=== PATIENT | female | born 1970 | race Two or more races ===

== ENCOUNTER 2016-09-28 20:03 | Inpatient (IN) | payer BC ==
[~2016-09-28] VITALS: Ht 177.8 cm; Wt 72.8 kg
[2016-09-28 20:25] LABS: BASOPHILS # (AUTO) 0.1 /CMM (0.0-0.2); DIFF TOTAL % 100 %; EOSINOPHILS # (AUTO) 0.2 /CMM (0.0-0.7); EOSINOPHILS % (AUTO) 3.1 % (0.0-6.0); HEMATOCRIT 40 % (33-45); HEMOGLOBIN 13.7 g/dL (11.5-14.8); LYMPHOCYTES # (AUTO) 2.4 /CMM (0.8-4.8); LYMPHOCYTES % (AUTO) 41.1 % (20.0-44.0); MEAN CORPUSCULAR HEMOGLOBIN 31 PG (26.0-33.0); MEAN CORPUSCULAR HGB CONC 34 g/dl (31.0-36.0); MEAN CORPUSCULAR VOLUME 90 fL (82-100); MONOCYTES # (AUTO) 0.5 /CMM (0.1-1.30); MONOCYTES % (AUTO) 8.4 % (2.0-12.0); NEUTROPHILS # (AUTO) 2.7 /CMM (1.8-8.9); NEUTROPHILS % (AUTO) 46.4 % (43.0-81.0); PLATELET COUNT (AUTO) 288 /CMM (150-450); RED BLOOD CELL COUNT(AUTO) 4.44 MIL/uL (4.0-5.2); WHITE BLOOD COUNT (AUTO) 5.9 K/uL (4.3-11.0)
[2016-09-28 20:39] LABS: INR 0.91 (0.87-1.13); PROTHROMBIN TIME 9.6 SECS (9.5-12.7)
[2016-09-28 20:41] LABS: ACETAMINOPHEN 0 ug/ml (10-30); ALANINE AMINOTRANSFERASE 21 U/L (12-78); ALBUMIN 3.8 g/dL (3.4-5.0); ANION GAP 12 (5-14); ASPARTATE AMINOTRANSFERASE 18 U/L (15-37); BILIRUBIN,DIRECT 0.1 mg/dL (0.0-0.2); BILIRUBIN,TOTAL 0.3 mg/dL (0.2-1.0); CALCIUM, SERUM 8.9 mg/dL (8.5-10.1); CARBON DIOXIDE 26 mmol/L (21-32); CHLORIDE 107 mmol/L (98-107); GFR 59 mL/min (>60); GLUCOSE 87 mg/dL (74-106); INDIRECT BILIRUBIN 0.2 mg/dL (0.0-1.1); POTASSIUM 3.8 mmol/L (3.5-5.1); SODIUM SERUM 141 mmol/L (136-145); TOTAL PROTEIN, SERUM 7.1 g/dL (6.4-8.2); UREA NITROGEN, BLOOD 17 mg/dL (7-18)
[2016-09-28 20:44] LABS: TROPONIN I < 0.017 ng/mL (0.00-0.056)
[2016-09-28 20:52] LABS: THYROID STIMULATING HORMONE 3.414 uIU/mL (0.358-3.74)
[2016-09-28] MEDS ORDERED: IV NS 0.9% 250 ML IV ONE (21:22)
[2016-09-28] MEDS ORDERED: IOHEXOL-350 100 ML VIAL IV ONE (21:22)
[2016-09-28 21:23] LABS: ADD UA MICROSCOPIC NO; KETONES,URINE Negative (NEGATIVE); LEUKOCYTE ESTERASE ,URINE Negative (NEGATIVE); PH,URINE 6.5 (5.0-8.0)
[2016-09-28] MEDS ORDERED: FOLI1TAB16 PO (21:25)
[2016-09-28] MEDS ORDERED: METF100P3 MC (21:25)
[2016-09-28] MEDS ORDERED: FLUO10CA26 PO (21:25)
[2016-09-28] MEDS ORDERED: MULT1CAP34 PO (21:25)
[2016-09-28] MEDS ORDERED: OMEG100T PO (21:25)
[2016-09-28] MEDS ORDERED: CALC-343 PO (21:25)
[2016-09-28] MEDS ORDERED: ALPR0.5T PO (21:25)
[2016-09-28] MEDS ORDERED: TRAZ150T75 PO (21:25)
[2016-09-28] MEDS ORDERED: LAMO100T2 PO (21:25)
[2016-09-28] MEDS ORDERED: [UNRECOGNIZED DRUG - OTHER] (21:25)
[2016-09-28] MEDS ORDERED: LACT1CAP71 PO (21:25)
[2016-09-28 21:28] LABS: CANNABINOID, URINE NEGATIVE (NEGATIVE); PHENCYCLIDINE SCREEN,URINE NEGATIVE (NEGATIVE)
[2016-09-28 22:50] VITALS: BP 130/80
[2016-09-28] MEDS ORDERED: HYDROCODONE/APAP 5/325MG 1 EACH TABLET PO PRN (23:30)
[2016-09-28] MEDS ORDERED: ONDANSETRON HCL/PF 4 MG/2 ML VIAL IVP PRN (23:30)
[2016-09-28] MEDS ORDERED: MAG HYDROX/AL HYDROX/SIMETH 30 ML UDC PO PRN (23:30)
[2016-09-28] MEDS ORDERED: ACETAMINOPHEN 325 MG TABLET PO PRN (23:30)
[2016-09-28] MEDS ORDERED: ZOLPIDEM TARTRATE 5 MG TABLET PO PRN (23:30)
[2016-09-28] MEDS ORDERED: Z GUARD REMEDY 2 OZ OINT TP PRN (23:30)
[2016-09-28] MEDS ORDERED: MAGNESIUM HYDROXIDE 30 ML UDC PO PRN (23:30)
[2016-09-28 23:50] VITALS: BP 130/80
[2016-09-29] MEDS: BLOOD SUGAR DIAGNOSTIC 1 EACH STRIP IN SCH ×5 (00:36→22:27)
[2016-09-29 04:00] VITALS: BP 124/79
[2016-09-29 06:34] LABS: BASOPHILS % (AUTO) 0.6 % (0.0-2.0); DIFF TOTAL % 100 %; EOSINOPHILS # (AUTO) 0.1 /CMM (0.0-0.7); EOSINOPHILS % (AUTO) 2.7 % (0.0-6.0); HEMATOCRIT 39 % (33-45); HEMOGLOBIN 13.4 g/dL (11.5-14.8); LYMPHOCYTES # (AUTO) 1.9 /CMM (0.8-4.8); LYMPHOCYTES % (AUTO) 38.9 % (20.0-44.0); MEAN CORPUSCULAR HEMOGLOBIN 31 PG (26.0-33.0); MEAN CORPUSCULAR HGB CONC 34 g/dl (31.0-36.0); MEAN CORPUSCULAR VOLUME 91 fL (82-100); MONOCYTES # (AUTO) 0.5 /CMM (0.1-1.30); MONOCYTES % (AUTO) 10.1 % (2.0-12.0); NEUTROPHILS # (AUTO) 2.3 /CMM (1.8-8.9); NEUTROPHILS % (AUTO) 47.7 % (43.0-81.0); PLATELET COUNT (AUTO) 302 /CMM (150-450); WHITE BLOOD COUNT (AUTO) 4.9 K/uL (4.3-11.0)
[2016-09-29 07:01] LABS: PROTHROMBIN TIME 10.1 SECS (9.5-12.7)
[2016-09-29 07:02] LABS: INR 0.94 (0.87-1.13)
[2016-09-29 07:13] LABS: ALBUMIN 3.5 g/dL (3.4-5.0); BILIRUBIN,TOTAL 0.5 mg/dL (0.2-1.0); CALCIUM, SERUM 8.4 mg/dL (8.5-10.1); CREATININE 0.9 mg/dL (0.6-1.3); PHOSPHORUS 3.9 mg/dL (2.5-4.9); POTASSIUM 4.2 mmol/L (3.5-5.1); TOTAL PROTEIN, SERUM 6.6 g/dL (6.4-8.2)
[2016-09-29 07:14] LABS: THYROID STIMULATING HORMONE 4.16 uIU/mL (0.358-3.74)
[2016-09-29 08:00] VITALS: BP 112/70
[2016-09-29 08:57] LABS: ERYTHROCYTE SEDIMENTATION RATE 8 MM/HR (0-20)
[2016-09-29] MEDS: ACIDOPHILUS/BULGARICUS 1 EACH TAB.CHEW PO SCH (09:26)
[2016-09-29] MEDS: MULTIVITAMINS,THERAPEUTIC 1 UDTAB TABLET PO SCH (09:26)
[2016-09-29] MEDS: Fluoxetine 10 mg capsule PO SCH (09:26)
[2016-09-29] MEDS: FOLIC ACID 1 MG TABLET PO SCH (09:27)
[2016-09-29] MEDS: ALPRAZOLAM 0.5 MG TABLET PO SCH (09:27)
[2016-09-29] MEDS: LamoTRIgine 100 MG TABLET PO SCH (09:27)
[2016-09-29 12:35] VITALS: BP 107/58
[2016-09-29] MEDS ORDERED: GADOVERSETAMIDE 2.5 MMOL/5 ML VIAL IJ ONE (15:36)
[2016-09-29] MEDS ORDERED: GADOVERSETAMIDE 5 MMOL/10 ML VIAL IJ ONE (15:36)
[2016-09-29 16:38] VITALS: BP 125/64
[2016-09-29 20:10] VITALS: BP_SYST 126; BP_SYST 145; BP_DIAS 59; BP_DIAS 65
[2016-09-30] VITALS: BP 112/66
[2016-09-30] MEDS: BLOOD SUGAR DIAGNOSTIC 1 EACH STRIP IN SCH ×2 (05:56→11:50)
[2016-09-30 07:00] VITALS: BP 127/63
[2016-09-30 07:54] LABS: BASOPHILS % (AUTO) 0.4 % (0.0-2.0); DIFF TOTAL % 100 %; EOSINOPHILS # (AUTO) 0.1 /CMM (0.0-0.7); EOSINOPHILS % (AUTO) 1.2 % (0.0-6.0); HEMATOCRIT 42 % (33-45); HEMOGLOBIN 14.2 g/dL (11.5-14.8); LYMPHOCYTES # (AUTO) 0.9 /CMM (0.8-4.8); LYMPHOCYTES % (AUTO) 16.2 % (20.0-44.0); MEAN CORPUSCULAR HEMOGLOBIN 31 PG (26.0-33.0); MEAN CORPUSCULAR HGB CONC 34 g/dl (31.0-36.0); MEAN CORPUSCULAR VOLUME 91 fL (82-100); MONOCYTES # (AUTO) 0.4 /CMM (0.1-1.30); MONOCYTES % (AUTO) 7.9 % (2.0-12.0); NEUTROPHILS # (AUTO) 4.1 /CMM (1.8-8.9); NEUTROPHILS % (AUTO) 74.3 % (43.0-81.0); PLATELET COUNT (AUTO) 285 /CMM (150-450); RED BLOOD CELL COUNT(AUTO) 4.57 MIL/uL (4.0-5.2); WHITE BLOOD COUNT (AUTO) 5.5 K/uL (4.3-11.0)
[2016-09-30 08:00] VITALS: BP 127/63
[2016-09-30 08:00] LABS: CALCIUM, SERUM 8.6 mg/dL (8.5-10.1); CREATININE 0.8 mg/dL (0.6-1.3); POTASSIUM 3.8 mmol/L (3.5-5.1)
[2016-09-30] MEDS: Fluoxetine 10 mg capsule PO SCH (08:34)
[2016-09-30] MEDS: MULTIVITAMINS,THERAPEUTIC 1 UDTAB TABLET PO SCH (08:34)
[2016-09-30] MEDS: FOLIC ACID 1 MG TABLET PO SCH (08:34)
[2016-09-30] MEDS: ALPRAZOLAM 0.5 MG TABLET PO SCH (08:34)
[2016-09-30] MEDS: LamoTRIgine 100 MG TABLET PO SCH (08:34)
[2016-09-30] MEDS: ACIDOPHILUS/BULGARICUS 1 EACH TAB.CHEW PO SCH (08:34)
== END 2016-09-30 14:00 | disposition home or self-care (01) | DRG 103 ==
LOC: ER 20:05 → TELE 22:02 → MED 09-30 13:21
PROVIDERS: ADMIT Family Medicine; ATTEND Family Medicine
DX: G43.109 Migraine with aura, not intractable, without status migrainosus (principal); M54.30 Sciatica, unspecified side; H91.90 Unspecified hearing loss, unspecified ear; F31.9 Bipolar disorder, unspecified; Z96.659 Presence of unspecified artificial knee joint; F44.9 Dissociative and conversion disorder, unspecified; I67.1 Cerebral aneurysm, nonruptured; Z85.828 Personal history of other malignant neoplasm of skin
CPT/HCPCS: 36415; 70450-TC; 70496-TC; 70498-TC; 70553-TC; 71010-TC; 80048-TC; 80053-TC; 80061-TC; 80076-TC; 80305; 81000-TC; 82140-TC; 82962-TC; 83735-TC; 83880; 84100-TC; 84439-TC; 84443-TC; 84481; 84484-TC; 85025-TC; 85652-TC; 85730-TC; 87081-TC; 92611-TC; 94799-TC; 97001-TC; 97003-TC; 97116-TC; 97530-TC; A4606; A9579; G6038-TC; G6039-TC; G6040-TC; J7050; Q9967; Z7610